=== PATIENT | male | born 1945 | race Caucasian/White ===

== ENCOUNTER 2020-08-23 15:51 | Emergency (ER) | payer OTHER ==
[~2020-08-23] VITALS: Ht 154.9 cm; Wt 63.5 kg
[~2020-08-23 15:51] MED LIST: AMIODARONE HYDROCHLORIDE PO; APIX2.5 PO; BENA10TA59 PO; Carvedilol PO; LEVE-1 PO; METO25TA14 PO; RANI150T8 PO
[2020-08-23 16:03] VITALS: BP 151/91
--- NOTE | 2020-08-23 16:06 | NUR ---
AMBULATED TO BED 7
[2020-08-23] MEDS ORDERED: NACL 0.9% 1,000 ML IV ONE (16:10)
--- NOTE | 2020-08-23 16:40 | NUR ---
75 y/o M BIB self from home with c/c abdominal pain and dizziness x 1 month. Pt states abdominal pain with associated chills, nausea x 1 on 08/22, SOB upon exertion, and phlem. Pt states pain as ball/constant, 0/10 at rest however 6/10 when it comes. Pt denies fever, diarrhea, coffee ground emesis, painful urination, CP. Bowel sounds normoactive x 4 quadrants. Pt placed on radiographer cardiac catheterization, bed locked in lowest position, side rails x 1. PMH: Gastritis Meds: Antacid, omeperazole NKA Sx: Denies
--- NOTE | 2020-08-23 16:40 | NUR ---
Dr. Dior is evaluating patient at bedside.
--- NOTE | 2020-08-23 16:58 | NUR ---
EMT is at bedside for EKG
--- NOTE | 2020-08-23 16:59 | NUR ---
Lab at bedside
[2020-08-23 17:26] LABS: BASOPHILS # (AUTO) 0.1 K/uL (0.00-0.22); BASOPHILS % (AUTO) 1.1 % (0.0-2.0); EOSINOPHILS # (AUTO) 0.1 K/uL (0-0.4); EOSINOPHILS % (AUTO) 1.8 % (0.0-4.0); HEMATOCRIT 47.1 % (36-52); LYMPHOCYTES # (AUTO) 1.3 K/uL (2.0-11.5); LYMPHOCYTES % (AUTO) 20.1 % (20.5-51.1); MEAN CORPUSCULAR HEMOGLOBIN 28 pg (27-31); MEAN CORPUSCULAR HGB CONC 32 g/dL (33-37); MEAN CORPUSCULAR VOLUME 87.6 fL (80-94); MONOCYTES # (AUTO) 0.4 K/uL (0.8-1.0); NEUTROPHILS # (AUTO) 4.5 K/uL (1.8-7.7); PLATELET COUNT (AUTO) 221 K/uL (140-450); RED BLOOD CELL COUNT(AUTO) 5.38 MIL/uL (4.20-6.10); RED CELL DISTRIBUTION WIDTH 16.4 % (11.6-13.7); WHITE BLOOD COUNT (AUTO) 6.3 K/uL (4.8-10.8)
--- NOTE | 2020-08-23 17:30 | NUR ---
Pt resting in semi-fowlers position. cardiac monitor in place. Bed locked in lowest position, side rails x 1, call light in reach. All pt needs met at this time.
[2020-08-23 17:58] LABS: ALBUMIN 3.3 g/dL (3.4-5.0); ANION GAP 12.8 (8-16); ASPARTATE AMINOTRANSFERASE 69 U/L (15-37); CARBON DIOXIDE 27.7 mmol/L (21-32); CHLORIDE 98 mmol/L (98-107); CREATININE 1.7 mg/dL (0.6-1.3); GLUCOSE 104 mg/dL (74-106); POTASSIUM 3.5 mmol/L (3.5-5.1); SODIUM SERUM 135 mmol/L (136-145); TOTAL BILIRUBIN 1.3 mg/dL (0.0-1.0); UREA NITROGEN, BLOOD 25 mg/dL (7-18)
--- NOTE | 2020-08-23 18:20 | NUR ---
Pt resting in semi-fowlers position. otter trawler boatswain in place. Bed locked in lowest position, side rails x 1, call light in reach. All pt needs met at this time.
[2020-08-23 18:30] VITALS: BP 128/107
--- NOTE | 2020-08-23 18:30 | NUR ---
Patient discharged with v/s stable. Written and verbal after care instructions given and explained. Patient verbalized understanding. Ambulatory with steady gait. All questions addressed prior to discharge. Advised to follow up with PMD.
--- NOTE | 2020-08-24 20:41 | NUR ---
LATE ENTRY- NORMAL SALINE 0.9% DISCONTINUED AT 181
== END 2020-08-23 18:30 | disposition home or self-care (01) ==
LOC: MED 15:51
DX: R42 Dizziness and giddiness (principal); I11.9 Hypertensive heart disease without heart failure; Z79.899 Other long term (current) drug therapy
CPT/HCPCS: 36415; 71045; 80053; 81002; 83690; 83880; 84484; 85025; 93005; 96360; 96361; 99285; J7030